=== PATIENT | female | born 1995 | race American Indian/Alaskan Native ===

== ENCOUNTER 2019-02-08 01:46 | Emergency (ER) | payer BC ==
--- NOTE | 2019-02-08 02:28 | XRay Report ---
CHEST 1 VIEW INDICATION / CLINICAL INFORMATION: Chest Pain. COMPARISON: None available. FINDINGS: SUPPORT DEVICES: None. HEART / MEDIASTINUM: No significant abnormality. LUNGS / PLEURA: No significant pulmonary or pleural abnormality. No pneumothorax. ADDITIONAL FINDINGS: No significant additional findings. IMPRESSION: No acute pulmonary or pleural abnormality. Signer Name: Mauricio Herrera MD FACR Signed: 02/08/2019 2:24 AM Workstation Name: [id number]
[2019-02-08 03:26] LABS: Basophils % (Auto) 0.4 % (0.0-1.8); Eosinophils # (Auto) 0.3 K/mm3 (0.0-0.4); Eosinophils % (Auto) 3.3 % (0.0-4.3); Hematocrit 38.1 % (30.3-42.9); Hemoglobin 12.8 gm/dl (10.1-14.3); Lymphocytes # (Auto) 2.6 K/mm3 (1.2-5.4); Mean Corpuscular HGB Conc 34 % (30-34); Mean Corpuscular Volume 95 fl (79-97); Monocytes # (Auto) 0.6 K/mm3 (0.0-0.8); Monocytes % (Auto) 8.3 % (0.0-7.3); Platelet Count 270 K/mm3 (140-440); Red Blood Count 4.03 M/mm3 (3.65-5.03); Red Cell Distribution Width 13.4 % (13.2-15.2)
[2019-02-08 03:35] LABS: INR 0.88 (0.87-1.13); Partial Thromboplastin Time 27.6 Sec. (24.2-36.6)
[2019-02-08 03:49] LABS: Alanine Aminotransferase 12 units/L (7-56); Albumin 4.2 g/dL (3.9-5); BUN/Creatinine Ratio 10; Blood Urea Nitrogen 7 mg/dL (7-17); Hemolysis Index 4
--- NOTE | 2019-02-08 03:56 | XRay Report ---
SOFT TISSUE NECK 2 VIEWS INDICATION / CLINICAL INFORMATION: foeign body throat. COMPARISON: None available. FINDINGS: The prevertebral soft tissues are normal in thickness. The epiglottis is unremarkable in appearance. No radiopaque foreign body is seen. Signer Name: Mauricio Herrera MD FACBrett Signed: 02/08/2019 3:52 AM Workstation Name: [id number]
[2019-02-08] MEDS ORDERED: DECADRON IM ONE (04:29)
[2019-02-08] MEDS ORDERED: PROVENTIL IH ONE (04:29)
[2019-02-08] MEDS ORDERED: ALUM-MAG HYDROX-SIMETH 200-200-20MG/5ML PO ONE (04:30)
[2019-02-08] MEDS ORDERED: LIDOCAINE VISCOUS 2% PO ONE (04:30)
--- NOTE | 2019-02-08 04:35 | Emergency Department Report ---
ED General Adult HPI - General Chief complaint: Chest Pain Stated complaint: CP Time Seen by Provider: 02/08/19 03:08 Source: patient Mode of arrival: Ambulatory Limitations: No Limitations - History of Present Illness Initial comments: Patient is a 23-year-old female who presents for toe pain states she believes she ingested some on 4 that got coronary throat causing chest pain and spasm there is no sob on wheezing no stridor , cp is sharp anterior chest wall , airway is patent no stridor no wheezing on n/v on back pain no dizziness no light headedness. Onset/Timin -: days(s) Location: neck, chest Radiation: non-radiation Severity scale (0 -10): 5 Quality: sharp, other (spasm) Consistency: constant Improves with: none Worsens with: none Associated Symptoms: chest pain Treatments Prior to Arrival: none - Related Data Previous Rx's Medication Instructions Recorded Last Taken Type Famotidine [Pepcid] 20 mg PO BID #60 tablet 02/08/19 Unknown Rx Ibuprofen [Motrin 800 MG tab] 800 mg PO Q8HR PRN #30 tablet 02/08/19 Unknown Rx Lidocaine Viscous 2% 10 ml MM TID PRN #250 ml 02/08/19 Unknown Rx dexAMETHasone [Decadron] 4 mg PO BID 2 Days #4 tablet 02/08/19 Unknown Rx Allergies Allergy/AdvReac Type Severity Reaction Status Date / Time No Known Allergies Allergy Unverified 02/08/19 01:50 ED Review of Systems ROS: Stated complaint: CP Other details as noted in HPI Constitutional: denies: chills, fever Eyes: denies: eye pain, eye discharge, vision change ENT: throat pain, congestion. denies: ear pain, dental pain, hearing loss, epistaxis Respiratory: denies: cough, shortness of breath, wheezing Cardiovascular: chest pain. denies: palpitations, dyspnea on exertion, orthopnea, syncope, paroxysmal nocturnal dyspnea Endocrine: no symptoms reported Gastrointestinal: denies: abdominal pain, nausea, vomiting, diarrhea, constipation, hematemesis, melena, hematochezia Genitourinary: denies: urgency, dysuria, frequency, hematuria, discharge, dyspareunia Musculoskeletal: denies: back pain, joint swelling, arthralgia Skin: denies: rash, lesions Neurological: denies: headache, weakness, paresthesias Psychiatric: denies: anxiety, depression Hematological/Lymphatic: denies: easy bleeding, easy bruising ED Past Medical Hx - Past Medical History Previous Medical History?: Yes Hx Asthma: Yes - Surgical History Past Surgical History?: Yes Additional Surgical History: Bunion removal - Social History Smoking Status: Never Smoker - Medications Home Medications: Home Medications Medication Instructions Recorded Confirmed Last Taken Type Famotidine [Pepcid] 20 mg PO BID #60 tablet 02/08/19 Unknown Rx Ibuprofen [Motrin 800 MG tab] 800 mg PO Q8HR PRN #30 tablet 02/08/19 Unknown Rx Lidocaine Viscous 2% 10 ml MM TID PRN #250 ml 02/08/19 Unknown Rx dexAMETHasone [Decadron] 4 mg PO BID 2 Days #4 tablet 02/08/19 Unknown Rx ED Physical Exam - General Limitations: No Limitations General appearance: alert, in no apparent distress, anxious - Head Head exam: Present: normocephalic, normal inspection - Eye Eye exam: Present: normal appearance, PERRL, EOMI Pupils: Present: normal accommodation - ENT ENT exam: Present: normal orophraynx, mucous membranes moist, TM's normal bilaterally, normal external ear exam - Expanded ENT Exam Expanded Mouth exam: Absent: trismus Throat exam: Positive: normal inspection, other (uvula midline no stridor ). Negative: tonsillar erythema, tonsillomegaly, tonsillar exudate, R peritonsillar mass, L peritonsillar mass - Neck Neck exam: Present: normal inspection, full ROM. Absent: tenderness, meningismus, lymphadenopathy, thyromegaly, other - Expanded Neck Exam Expanded Neck exam: Absent: tenderness, midline deformity, anterior neck swelling, thyroid mass, carotid bruit, tracheal deviation - Respiratory Respiratory exam: Present: normal lung sounds bilaterally. Absent: respiratory distress, wheezes, stridor, chest wall tenderness - Cardiovascular Cardiovascular Exam: Present: regular rate, normal rhythm, normal heart sounds. Absent: systolic murmur, diastolic murmur, rubs, gallop - GI/Abdominal GI/Abdominal exam: Present: soft, normal bowel sounds. Absent: distended, te nderness, guarding, rebound, rigid, bruit, hernia - Rectal Rectal exam: Present: deferred - Extremities Exam Extremities exam: Present: normal inspection, full ROM, normal capillary refill. Absent: tenderness, pedal edema, joint swelling, calf tenderness - Back Exam Back exam: Present: normal inspection, full ROM. Absent: tenderness, CVA tenderness (R), CVA tenderness (L), muscle spasm, paraspinal tenderness, vertebral tenderness, rash noted - Neurological Exam Neurological exam: Present: alert, oriented X3, CN II-XII intact, normal gait, reflexes normal. Absent: motor sensory deficit - Psychiatric Psychiatric exam: Present: normal affect, normal mood - Skin Skin exam: Present: warm, dry, intact, normal color. Absent: rash ED Course Vital Signs 02/08/19 01:51 Temperature 98.7 F Pulse Rate 79 Respiratory 20 Rate Blood Pressure 103/68 O2 Sat by Pulse 99 Oximetry ED Medical Decision Making - Lab Data Result diagrams: 02/08/19 03:13 02/08/19 03:13 - Radiology Data Radiology results: report reviewed, image reviewed Ordering Physician: KEVIN DONOHUE NP Date of Service: 02/08/19 Procedure(s): XR neck soft tissue Accession Number(s): [id number] cc: KEVIN DONOHUE NP Fluoro Time In Minutes: SOFT TISSUE NECK 2 VIEWS INDICATION / CLINICAL INFORMATION: foeign body throat. COMPARISON: None available. FINDINGS: The prevertebral soft tissues are normal in thickness. The epiglottis is unremarkable in appearance. No radiopaque foreign body is seen. Signer Name: Mauricio Herrera MD FACR Signed: 02/08/2019 3:52 AM Workstation Name: [id number] Transcribed By: CT Dictated By: Mauricio Herrera MD Electronically Authenticated By: Mauricio Herrera MD Signed Date/Time: 02/08/19351 DD/ 0 TD/TT: Ordering Physician: BAILEY FU MD Date of Service: 02/08/19 Procedure(s): XR chest 1V ap Accession Number(s): [id number] cc: BAILEY FU MD Fluoro Time In Minutes: CHEST 1 VIEW INDICATION / CLINICAL INFORMATION: Chest Pain. COMPARISON: None available. FINDINGS: SUPPORT DEVICES: None. HEART / MEDIASTINUM: No significant abnormality. LUNGS / PLEURA: No significant pulmonary or pleural abnormality. No pneumothorax. ADDITIONAL FINDINGS: No significant additional findings. IMPRESSION: No acute pulmonary or pleural abnormality. Signer Name: Mauricio Herrera MD FACR Signed: 02/08/2019 2:24 AM Workstation Name: [email or web address] Transcribed By: MS Dictated By: Mauricio Herrera MD Electronically Authenticated By: Mauricio Herrera MD Signed Date/Time: 02/08/19223 DD/ 3 TD/TT: - Medical Decision Making cxr normal, soft tissue neck normal no foreign body , symptoms improved with gi cocktail , and decadron plan dc to home with rx with ibuprofen, decadron, lidocaine viscous wash pt will follow up with ENT in 2 days will [facility] to [facility] if symptoms worsen. pt verbalized agreement and understanding of same. Critical care attestation.: If time is entered above; I have spent that time in minutes in the direct care of this critically ill patient, excluding procedure time. ED Disposition Clinical Impression: Pharyngitis Qualifiers: Pharyngitis/tonsillitis etiology: unspecified etiology Qualified Code(s): J02.9 - Acute pharyngitis, unspecified Disposition: DC-01 TO HOME OR SELFCARE Is pt being admited?: No Does the pt Need Aspirin: No Condition: Stable Instructions: Pharyngitis (ED) Prescriptions: dexAMETHasone [Decadron] 4 mg PO BID 2 Days #4 tablet Lidocaine Viscous 2% 10 ml MM TID PRN #250 ml PRN Reason: throat pain Ibuprofen [Motrin 800 MG tab] 800 mg PO Q8HR PRN #30 tablet PRN Reason: pain Famotidine [Pepcid] 20 mg PO BID #60 tablet Referrals: ED [facility] MD EHSAN [Primary Care Provider] - 3-5 Days ESTRELLITA SY MD [Staff Physician] - 2-3 Days Forms: Work/School Release Form(ED) Time of Disposition: 04:45
[2019-02-08 06:01] VITALS: BP 110/60
== END 2019-02-08 05:10 | disposition home or self-care (01) ==
LOC: ED 01:46
DX: J02.9 Acute pharyngitis, unspecified (principal); R07.89 Other chest pain; J45.909 Unspecified asthma, uncomplicated; Z79.899 Other long term (current) drug therapy
CPT/HCPCS: 36415; 70360; 71045; 80053; 84703; 85025; 85379; 85610; 85730; 93005; 93010; 96372; 99284; J1100